=== PATIENT | male | born 1975 | race Caucasian/White ===

== ENCOUNTER 2018-08-01 09:00 | Day surgery (SDC) | payer OTHER ==
[~2018-08-01] VITALS: Ht 175.3 cm; Wt 71.7 kg
--- NOTE | ~2018-08-01 | OP ---
PATIENT NAME: SELENE HERRON MEDICAL RECORD: [id number] LOCATION:[facility] ADMISSION DATE: SURGEON: DARREL ALVARENGA MD DATE OF OPERATION: 08/01/2018 SURGEON: Darrel Alvarenga MD ANESTHESIA: TIVA by Otf Crowe CRNA DIAGNOSIS: Male sterilization. PROCEDURE: Bilateral vasectomy. SPECIMENS: Bilateral vasa deferentia. BLOOD LOSS: None. CLINICAL HISTORY: This is a 42-year-old male, who wishes to have elective sterilization. He has 3 children and he is in his third marriage. He is otherwise healthy. He is not allergic to any medications. He was given Ancef iron cutter to the OR. DESCRIPTION OF PROCEDURE: The patient was placed in supine position. He was given IV sedation. He was then shaved, prepped and draped. On the right side, we palpated the vas deferens easily. Towel clips were placed through the scrotal skin to lock the vas in place. The overlying skin was then infiltrated with 0.25% Marcaine with epinephrine. A 1 cm long incision was made and using a pointed hemostat, we were able to isolate the vas deferens. The fascial tissues were stripped using Bovie. The vas was then clamped proximally and distally with at least 1 cm of segment intervening. The intervening segment was excised using Metzenbaum scissors. The cut ends were then cauterized. The cut ends were ligated using 2-0 Prolene. The same procedure was done on the opposite side. The skin incisions were closed using running 4-0 Monocryl. Fluffs and mesh panties were given. I will see the patient next week to check on wound healing. TRANSINT:[id number] Voice Confirmation ID: [id number] DOCUMENT ID: [id number] DARREL ALVARENGA MD at 0812 CC: [id number] DICTATION DATE: 08/01/18 1311 [place] OPERATOR: 08/01/18 1654 [facility] 08/01/18 [id number] [place] [address]
[2018-08-01 09:36] VITALS: BP 113/73; Ht 175.3 cm; Wt 71.7 kg
== END 2018-08-01 14:05 | disposition home or self-care (01) ==
LOC: D.OPS 09:00 → D.PAN 10:15 → D.OPS 10:55
DX: Z30.2 Encounter for sterilization (principal); Z01.812 Encounter for preprocedural laboratory examination

== ENCOUNTER → 2018-08-28 16:23 | Outpatient (CLI) | payer OTHER ==
[2018-08-01 09:36] VITALS: BMI 23.3
== END | disposition home or self-care (01) ==
LOC: D.LAB 16:23
DX: N46.9 Male infertility, unspecified (principal)

== ENCOUNTER → 2018-11-20 16:33 | Outpatient (CLI) | payer OTHER ==
[2018-08-01 09:36] VITALS: BMI 23.3
== END | disposition home or self-care (01) ==
LOC: D.LAB 16:33
PROVIDERS: ATTEND Urology
DX: R10.9 Unspecified abdominal pain (principal); Z87.442 Personal history of urinary calculi

== ENCOUNTER → 2018-11-20 18:40 | Outpatient (CLI) | payer OTHER ==
[2018-08-01 09:36] VITALS: BMI 23.3
== END | disposition home or self-care (01) ==
LOC: D.LABREF 18:40
PROVIDERS: ATTEND Urology
DX: D72.829 Elevated white blood cell count, unspecified (principal); R31.9 Hematuria, unspecified

== ENCOUNTER → 2018-12-20 10:49 | Outpatient (CLI) | payer OTHER ==
[2018-08-01 09:36] VITALS: BMI 23.3
== END | disposition home or self-care (01) ==
LOC: D.CT 10:49
PROVIDERS: ATTEND Urology
DX: R31.0 Gross hematuria (principal)

== ENCOUNTER → 2019-01-15 13:03 | Outpatient (CLI) | payer OTHER ==
[2018-08-01 09:36] VITALS: BMI 23.3
== END | disposition home or self-care (01) ==
LOC: D.CT 13:03
PROVIDERS: ATTEND Urology
DX: N20.0 Calculus of kidney (principal)

== ENCOUNTER → 2019-03-18 08:21 | Outpatient (CLI) | payer OTHER ==
[2018-08-01 09:36] VITALS: BMI 23.3
== END | disposition home or self-care (01) ==
LOC: D.CT 08:21
PROVIDERS: ATTEND Urology
DX: N20.0 Calculus of kidney (principal)

== ENCOUNTER → 2019-07-28 17:15 | Outpatient (CLI) | payer OTHER ==
[2018-08-01 09:36] VITALS: BMI 23.3
== END | disposition home or self-care (01) ==
LOC: D.LABREF 17:15
PROVIDERS: ATTEND Urology
DX: R31.9 Hematuria, unspecified (principal)

== ENCOUNTER → 2019-08-01 09:48 | Outpatient (CLI) | payer OTHER ==
[2018-08-01 09:36] VITALS: BMI 23.3
== END | disposition home or self-care (01) ==
LOC: D.RAD 09:15 → D.CT 09:30 → D.RAD 09:48
PROVIDERS: ATTEND Urology
DX: N20.2 Calculus of kidney with calculus of ureter (principal)